=== PATIENT | female | born 1935 | race African-American/Black ===

== ENCOUNTER 2016-05-24 20:40 | Emergency (ER) | payer OTHER ==
[~2016-05-24] VITALS: Ht 175.3 cm; Wt 59.0 kg
[~2016-05-24 20:40] MED LIST: AMLODIPINE BESYL5 MG ORAL; CITALOPRAM HBR10 M1 ORAL; TENORMIN25 MG ORAL
[2016-05-24 21:36] VITALS: BP 216/76
--- NOTE | 2016-05-24 21:53 | Emergency Room Report ---
History of Present Illness General Chief Complaint: Hypertension Source: Patient, Family Member Present Illness HPI Is an 80-year-old female with a history hypertension. She presents with chief complaint of high blood pressure. According to her great grandniece, her blood pressure home was systolic over 200. Patient has no complaint. For last week or so she's been eating or hamburger. Patient denies any symptom. No chest pain. No shortness of breath. No headache. She's been taking her medication. Allergies: Coded Allergies: PENICILLINS (Verified Adverse Reaction, Intermediate, 04/23/14) Patient History Past Medical History: see triage record, old chart reviewed, HTN Past Surgical History: other Pertinent Family History: none Social History: Denies: smoking Now: No Immunizations: other Reviewed Nursing Documentation: PMH: Agreed, PSxH: Agreed Nursing Documentation-PMH Hx Hypertension: Yes Hx Cerebrovascular Accident: Yes Review of Systems Eye: Denies: blurred vision, eye pain ENT: Denies: ear pain, nose congestion, throat swelling Respiratory: Denies: cough, shortness of breath Cardiovascular: Denies: chest pain, palpitations Gastrointestinal: Denies: abdominal pain, diarrhea, nausea, vomiting Musculoskeletal: Denies: back pain, joint pain Skin: Denies: rash Neurological: Denies: headache, numbness Endocrine: Denies: increased thirst, increased urine Hematologic/Lymphatic: Denies: easy bruising All Other Systems: negative except mentioned in HPI Physical Exam Vital Signs Date Time Temp Pulse Resp B/P Pulse Ox O2 Delivery O2 Flow Rate FiO2 05/24/16 20:52 97.3 43 17 190/72 97 Room Air vitals with hypertension and bradycardia Sp02 EP Interpretation: reviewed, normal General Appearance: well appearing, no apparent distress, alert Head: normocephalic, atraumatic Eyes: bilateral eye EOMI, bilateral eye PERRL ENT: hearing grossly normal, normal pharynx Neck: full range of motion, supple, no meningismus Respiratory: chest non-tender, lungs clear, normal breath sounds Cardiovascular #1: regular rate, rhythm, no murmur Gastrointestinal: normal bowel sounds, non tender, no mass, no organomegaly, no bruit, non-distended Musculoskeletal: back normal, gait/station normal, normal range of motion Psychiatric: mood/affect normal Skin: warm/dry Medical Decision Making Diagnostic Impression: Primary Impression: Hypertension Qualified Codes: I10 - Essential (primary) hypertension Additional Impression: Anemia Qualified Codes: D64.9 - Anemia, unspecified ER Course Patient presents with hypertension. No evidence of end organ damage. Urine is unremarkable. I see no evidence of infection. We'll await for urine culture before treatment. I will go ahead and increase her Norvasc to 10 mg a day. We' ll discharge home with reassurance. Most likely secondary to dietary indiscretion. Lab Results Impression labs unremarkable EKG Diagnostic Results Rate: normal, bradycardiac Rhythm: NSR ST Segments: other - Bifascicular Rhythm Strip Diag. Results EP Interpretation: yes Rate: 55 Rhythm: NSR, no PVC's, no ectopy Last Vital Signs Date Time Temp Pulse Resp B/P Pulse Ox O2 Delivery O2 Flow Rate FiO2 05/24/16 21:42 216/76 05/24/16 21:36 97.3 43 17 97 Room Air Status: improved Disposition: HOME, SELF-CARE Condition: Improved Referrals: [facility],REFERRING (PCP) Patient Instructions: High Blood Pressure (Hypertension) Additional Instructions: Increased your amlodipine (Norvasc) to 10 mg a day. Followup with your DrWilfredo within a week. Return if symptom worsen. PAYAM HUTTON M.D. May 24, 2016 21:53
[2016-05-24 22:00] VITALS: BP 177/76
[2016-05-24 22:03] LABS: BASOPHILS % (AUTO) 1.6 % (0.0-2.0); EOSINOPHILS % (AUTO) 2.8 % (0.0-3.0); LYMPHOCYTES % (AUTO) 31.6 % (20.0-45.0); MEAN CORPUSCULAR HEMOGLOBIN 27.5 PG (27.0-31.0); MEAN CORPUSCULAR HGB CONC 29.7 G/DL (32.0-36.0); MEAN CORPUSCULAR VOLUME 93 FL (80-99); MEAN PLATELET VOLUME 5.8 FL (6.5-10.1); MONOCYTES % (AUTO) 13.8 % (1.0-10.0); NEUTROPHILS % (AUTO) 50.1 % (45.0-75.0); PLATELET COUNT 496 K/UL (150-450); RED BLOOD COUNT 3.95 M/UL (4.20-5.40); RED CELL DISTRIBUTION WIDTH 26.4 % (11.6-14.8); WHITE BLOOD COUNT 10.7 K/UL (4.8-10.8)
[2016-05-24 22:15] LABS: ALANINE AMINOTRANSFERASE 8 U/L (3-33); ALBUMIN/GLOBULIN RATIO 1.1 (1.0-2.7); ANION GAP 14 (5-15); ASPARTATE AMINO TRANSFERASE 15 U/L (5-40); CALCIUM 9.2 mg/dL (8.6-10.2); CARBON DIOXIDE 28 mEQ/L (20-30); CHLORIDE 100 mEQ/L (98-107); CREATININE 0.7 mg/dL (0.5-0.9); HEMOLYSIS 2; POTASSIUM 3.5 mEQ/L (3.4-4.9); SODIUM 142 mEQ/L (135-145); TOTAL PROTEIN 7.3 g/dL (6.6-8.7); TROPONIN I < 0.30 ng/mL (<=0.30)
[2016-05-24 22:19] LABS: APPEARANCE,URINE CLEAR; KETONES,URINE NEGATIVE (NEGATIVE); LEUKOCYTE ESTERASE ,URINE NEGATIVE (NEGATIVE); NITRITE,URINE POSITIVE (NEGATIVE); PH,URINE 7 (4.5-8.0); PROTEIN,URINE 2+ (NEGATIVE); UROBILINOGEN,URINE NORMAL MG/DL (0.0-1.0)
[2016-05-24 22:27] LABS: AMORPHOUS SEDIMENT,UR FEW /LPF; BACTERIA,URINE FEW /HPF; SQUAMOUS EPITHELIAL CELL,UR FEW /LPF (NONE/OCC); WBC,URINE 0-2 /HPF (0 - 2)
[2016-05-24] MEDS ORDERED: NORVASC10 MG ORAL (22:36)
[2016-05-24 22:37] VITALS: BP 109/74
[2016-05-24 22:40] LABS: CKMB < 1.5 ng/mL (< 3.8)
[2016-05-24 22:42] VITALS: BP 109/74
--- NOTE | 2016-05-27 19:51 | Cardiology Report ---
APPROVED REPORT EKG Measurement Heart [id number] Marked sinus bradycardia Right bundle branch block Left anterior fascicular block Bifascicular block Voltage criteria for left ventricular hypertrophy Cannot rule out Septal infarct, age undetermined Abnormal ECG
== END 2016-05-24 22:49 | disposition home or self-care (01) ==
LOC: EMR 21:28
DX: I10 Essential (primary) hypertension (principal); D64.9 Anemia, unspecified; Z86.73 Personal history of transient ischemic attack (TIA), and cerebral infarction without residual deficits; Z88.0 Allergy status to penicillin
CPT/HCPCS: 36415; 80053; 81003; 82550; 82553; 83880; 84484; 85025; 93005; 96374; 99284; J0360